=== PATIENT | female | born 1995 | race Caucasian/White ===

== ENCOUNTER 2023-04-03 07:04 | Day surgery (SDC) | payer BC ==
[~2023-04-03 07:04] MED LIST: Lactated Ringers 1,000 ML IV SCH; Sodium Chloride 0.9% 10 ML Syringe FLUSH PRN
[2023-04-03] MEDS ORDERED: Lidocaine 2% 5 ML SDV IV ONE (07:05)
[2023-04-03] MEDS ORDERED: Propofol 200 MG/20 ML SDV IV ONE (07:05)
[2023-04-03] MEDS ORDERED: Simethicone Drops 40 MG/0.6 ML 30 ML Bottle PO ONE (08:12)
== END 2023-04-03 09:40 | disposition home or self-care (01) ==
LOC: FB.SDS 07:04
PROVIDERS: ATTEND Surgery
DX: Q43.8 Other specified congenital malformations of intestine (principal); K63.89 Other specified diseases of intestine; K64.8 Other hemorrhoids; K62.5 Hemorrhage of anus and rectum; K60.2 Anal fissure, unspecified; K62.89 Other specified diseases of anus and rectum; Z88.2 Allergy status to sulfonamides; Z79.899 Other long term (current) drug therapy
CPT/HCPCS: 00812; 88305; A9270-GY; J2704; J7120

== ENCOUNTER 2023-06-30 07:00 | Day surgery (SDC) | payer BC ==
[2023-06-30] MEDS ORDERED: Midazolam 1 MG/ML 2 ML SDV IV ONE (07:01)
[2023-06-30] MEDS ORDERED: Lidocaine 2% 5 ML SDV IV ONE (07:01)
[2023-06-30] MEDS ORDERED: Propofol 200 MG/20 ML SDV IV ONE (07:01)
== END 2023-06-30 10:42 | disposition home or self-care (01) ==
LOC: FB.SDS 07:00
PROVIDERS: ATTEND Surgery
DX: K62.89 Other specified diseases of anus and rectum (principal); K64.1 Second degree hemorrhoids; K64.4 Residual hemorrhoidal skin tags; Z79.899 Other long term (current) drug therapy; Z88.2 Allergy status to sulfonamides; Z88.8 Allergy status to other drugs, medicaments and biological substances; Z88.1 Allergy status to other antibiotic agents
CPT/HCPCS: 00902; 81025; J2250; J2704; J7120